=== PATIENT | female | born 1990 | race African-American/Black ===

== ENCOUNTER 2016-09-19 09:10 | Emergency (ER) | payer OTHER ==
[~2016-09-19] VITALS: Ht 157.5 cm; Wt 89.0 kg
[2016-09-19 09:13] VITALS: Ht 157.5 cm; Wt 89.0 kg
--- NOTE | 2016-09-19 09:26 | ERD ---
ER Documentation Chief Complaint Date/Time DATE: 09/19/16 TIME: 09:24 Chief Complaint ap with nausea "belly button" site with nausea HPI 26-year-old female with a recent bellybutton piercing comes emergency department with swelling and pain at the site. She states that it got pierced a month ago and she states that the area has become painful and swollen over the last week. Last night she removed the piercing from the site. She has achy pain that is localized, moderate, worse with any movement and better at rest. She denies fevers, chills, vomiting. ROS All systems reviewed and are negative except as per history of present illness. Medications Home Meds Active Scripts Naproxen* (Naprosyn*) 500 Mg Tablet, 500 MG PO BID Y for PAIN AND/OR INFLAMMATION, #30 TAB Prov:MIRELLA HERMAN PA-C 09/19/16 Sulfamethoxazole/Trimethoprim* (Bactrim Ds* Tablet) 1 Each Tablet, 1 TAB PO BID , #14 TAB Prov:MIRELLA HERMAN PA-C 09/19/16 Cephalexin* (Keflex*) 500 Mg Capsule, 500 MG PO QID for 7 Days, CAP Prov:MIRELLA HERMAN PA-C 09/19/16 PMhx/Soc Medical and Surgical Hx: pt denies Medical Hx Hx Tobacco Use: No Physical Exam Vitals Vital Signs Date Time Temp Pulse Resp B/P Pulse Ox O2 Delivery O2 Flow Rate FiO2 09/19/16 09:13 98.1 85 20 125/90 99 Physical Exam General: Well-developed, well-nourished. The patient appears in no acute distress. HEENT: Head is normocephalic, atraumatic. No scleral icterus. Neck: Supple. Nontender. Lungs: Clear to auscultation. Normal air movement. Heart: Regular rate and rhythm. S1 and S2 are normal. No murmurs, gallops, or rubs. Abdomen: Soft, nondistended. Bowel sounds are normoactive. Abscess seen just above the umbilicus. There is an area of induration of approximately 4 cm, with fluctuance and central aspect. Abdominal examination otherwise is unremarkable Extremities: No clubbing or cyanosis. Normal pulses. Moving extremities x 4. No weakness. Neurologic: Alert and oriented 3. No focal deficits. Skin: Normal turgor. No rash or lesions. Results 24 hrs Current Medications Medications (Trade) Dose Ordered Sig/Varsha Route PRN Reason Start Time Stop Time Status Last Admin Dose Admin Lidocaine (Xylocaine 1% (Mdv) 20 ml) 20 ml ONCE ONCE SC 09/19/16 09:30 09/19/16 09:31 DC Cephalexin (Keflex) 500 mg ONCE ONCE PO 09/19/16 09:30 09/19/16 09:31 DC 09/19/16 09:28 Trimethoprim/ Sulfamethoxazole (Bactrim (Ds)) 1 tab ONCE ONCE PO 09/19/16 09:30 09/19/16 09:31 DC 09/19/16 09:28 Procedures/MDM Abscess Incision and Drainage with irrigation by me: Patient was verbally consent Location: Abdomen Anesthesia: Local 1% Lidocaine Technique: Irrigated. Disrupted loculations w/ instrumentation Packing: None Complications: Neurovascularly intact post procedure 48 hour wound check. Scar minimization instructions given. Patient's skin symptoms have stabilized while they have been evaluated in the department and are appropriate for outpatient care and work up. Exam and w/u not consistent w/ sepsis, deep space infection, or foreign body. Departure Diagnosis: Primary Impression: Abscess Additional Impression: Encounter for incision and drainage procedure Condition: MIRELLA Victoria PA-C Sep 19, 2016 09:26
[2016-09-19] MEDS ORDERED: LIDOCAINE 1% (MDV) 20 ML INJ SC ONE (09:30)
[2016-09-19] MEDS ORDERED: TRIMETHOPRIM/SULFAMETHOX (DS) TAB PO ONE (09:30)
[2016-09-19] MEDS ORDERED: CEPHALEXIN 500 MG CAP PO ONE (09:30)
[2016-09-19] MEDS ORDERED: SULF1TAB31 PO (09:39)
[2016-09-19] MEDS ORDERED: NAPR-260 PO (09:39)
[2016-09-19] MEDS ORDERED: CEPH-443 PO (09:39)
== END 2016-09-19 10:20 | disposition home or self-care (01) ==
LOC: FTE 09:10
DX: L02.211 Cutaneous abscess of abdominal wall (principal)
CPT/HCPCS: 10061; Z7502; Z7610